=== PATIENT | female | born 1950 | race Caucasian/White ===

== ENCOUNTER 2020-04-29 14:43 | Outpatient (CLI) | payer MEDICARE, MEDICAID, SELFPAY ==
--- NOTE | ~2020-04-29 | DEXA_ITS ---
BMD(1) Young-Adult(2) Age-Matched(3) Region (g/cm2) T-score Z-score WHO Classification L1 1.162 0.2 0.7 Normal L2 1.265 0.5 0.9 Normal L3 1.312 0.8 1.2 Normal L4 1.271 0.4 0.9 Normal L1-L4 1.254 0.5 1.0 Normal L2-L4 1.284 0.5 1.0 Normal Trend: L2-L4 Change vs Change vs Measured Age BMD(1) Baseline Previous Date (years) (g/cm2) (%) (%) 04[age]29/2020 69.7 1[age]284 baseline - 1 - Statistically 68% of repeat scans fall within 1SD (+- 0.010 g/cm2 for AP Spine L2-L4) 2 - [place] (Combined NHANES (ages 20-30) / AT Internet (ages 20-40)) AP Spine Reference Population (v112) 3 - Matched for Age, Weight (females 25-100 kg), Ethnic 11 - World Health Organization - Definition of Osteoporosis and Osteopenia for Women: Normal = T-score at or above -1.0 SD; Osteopenia = T-score between -1.0 and -2.5 SD; Osteoporosis = T-score at or below -2.5 SD; (WHO definitions only apply when a young healthy Women reference database is used to determine T-scores.) Printed: 04/29/2020 3:52:08 PM (13.60)76:3.00:22.22:27.0 0.00:12.24 0.60x1.05 33.8:%Fat=39.6% 0.00:0.00 0.00:0.00 Filename: [id number] Scan Mode: Thick;OneScan 83.0 uGy [employer] [id number] BMD(1) Young-Adult(2,7) Age-Matched(3) Region (g/cm2) T-score Z-score WHO Classification Neck Left 0.752 -2.1 -1.2 Osteopenia Right 0.903 -1.0 -0.1 Normal Mean 0.827 -1.5 -0.6 Osteopenia Difference 0.152 1.1 1.1 - Total Left 1.000 -0.1 0.5 Normal Right 0.980 -0.2 0.3 Normal Mean 0.990 -0.1 0.4 Normal Difference 0.020 0.2 0.2 - Hip [place] Length Comparison (mm) (Right = 94.0 mm) (Mean = 104.2 mm) (Left = 95.7 mm) Trend: Total Mean Change vs Change vs Measured Age BMD(1) Baseline Previous Date (years) (g/cm2) (%) (%) 04/29/2020 68.7 0.990 baseline - 1 - Statistically 68% of repeat scans fall within 1SD (+- 0.010 g/cm2 for DualFemur Total) 2 - [place] (Combined NHANES (ages 20-30) / AT Internet (ages 20-40)) Femur Reference Population (v112) 3 - Matched for Age, Weight (females 25-100 kg), Ethnic 7 - DualFemur Total T-score difference is 0.2. Asymmetry is None. 11 - World Health Organization - Definition of Osteoporosis and Osteopenia for Women: Normal = T-score at or above -1.0 SD; Osteopenia = T-score between -1.0 and -2.5 SD; Osteoporosis = T-score at or below -2.5 SD; (WHO definitions only apply when a young healthy Women reference database is used to determine T-scores.) Printed: 04/29/2020 3:52:08 PM (13.60); Filename: [id number]; Right Femur; 29.7:%Fat=37.0%; Neck Angle (deg)= 61; Measured thickness not within mode range; Scan Mode: Standard 37.0 uGy; Left Femur; 31.0:%Fat=42.1%; Neck Angle (deg)= 67; Measured thickness not within mode range; Scan Mode: Standard 37.0 uGy [employer] [id number] Dear Enma Allan, Your patient Maya Johnston completed a BMD test on 04/29/2020 using the [employer] DXA System (analysis version: 13.60) manufactured by [employer]. The following summarizes the results of our evaluation. PATIENT BIOGRAPHICAL: Name: Maya Johnston Date: 1950 Height: 62.0 in.
== END 2020-04-29 14:44 | disposition home or self-care (01) ==
LOC: CHSIMG 14:49
PROVIDERS: PCP Family Medicine; Visit Provider Physician Assistant
DX: Z78.0 Asymptomatic menopausal state (principal)
CPT/HCPCS: 77080

== ENCOUNTER 2020-04-29 15:17 | Emergency (ER) | payer MEDICARE, MEDICAID, SELFPAY ==
[2020-04-29 15:20] VITALS: BP 132/80; PULSE 80; RESP 14; TEMP 37.1; O2SAT 96
--- NOTE | 2020-04-29 15:38 | ED.WOUNDLAC ---
HPI - Wound/Laceration General Chief Complaint: Wound/Laceration Stated Complaint: 69YO female w/ 6 day h/o right leg red bump. Patient admits she has squeezed lesion w/ clear drainage and scant blood. Here for abx. Denies fever, chills. Related Data Home Medications Medication Instructions Recorded Confirmed [id number] 1 ea INHALATION DAILY 04/29/20 04/29/20 [Trelegy Ellipta] lovastatin 20 mg PO DAILY 04/29/20 04/29/20 montelukast 10 mg PO DAILY 04/29/20 04/29/20 pantoprazole 40 mg PO DAILY 04/29/20 04/29/20 Allergies Allergy/AdvReac Type Severity Reaction Status Date / Time hydromorphone [From Dilaudid] Allergy Unknown Verified 04/29/20 15:32 levofloxacin [From Levaquin] Allergy Unknown Verified 04/29/20 15:32 morphine Allergy Unknown Verified 04/29/20 15:32 topiramate [From Topamax] Allergy Unknown Verified 04/29/20 15:32 Review of Systems Cardiovascular: Cardiovascular: Reports no additional cardiovascular complaints Respiratory: Respiratory: Reports no additional respiratory complaints Integumentary/Breasts: Skin/Breast: Reports system reviewed and no additional complaints, except as docu, Reports as per HPI and Reports erythema Neurologic: Reports system reviewed and no additional complaints, except as documented and Reports as per HPI Exam Skin: Wounds: wounds noted (Right leg erythema w/ induration. Nonfluctuant) Neuro: General: patient oriented x3, moves all extremities, no focal motor deficits and CN's II-XI intact bilaterally Extrem: General: normal to inspection Course Vital Signs Vital signs: Vital Signs Temperature 98.7 F 04/29/20 15:20 Pulse Rate 80 04/29/20 15:20 Respiratory Rate 14 04/29/20 15:20 Blood Pressure 132/80 04/29/20 15:20 Pulse Oximetry 96 04/29/20 15:20 Temperature 98.7 F 04/29/20 15:20 Pulse Rate 80 04/29/20 15:20 Respiratory Rate 14 04/29/20 15:20 Blood Pressure 132/80 04/29/20 15:20 Pulse Oximetry 96 04/29/20 15:20 MDM - Wound/Laceration Differential Diagnosis Differential diagnosis: Likely abrasion and other (cellulitis) Critical Care Time Critical Care Time Critical Care Time: No Discharge Plan Discharge Clinical Impression: Cellulitis of left leg Patient Disposition: Home, Self-Care Condition: Stable Instructions: Antibiotic Form, Cellulitis (ED) Additional Instructions: F/U with PMD in 5-7 days for wound reexamination Prescriptions: New doxycycline hyclate 100 mg capsule 100 mg PO Q12H Qty: 20 RF: 0 No Action pantoprazole 40 mg tablet,delayed release (DR/EC) 40 mg PO DAILY RF: 0 Trelegy Ellipta 100-62.5-25 mcg blister with device 1 ea INHALATION DAILY RF: 0 montelukast 10 mg tablet 10 mg PO DAILY RF: 0 lovastatin 20 mg tablet 20 mg PO DAILY RF: 0 Interventions: Discharge Disposition Last Done: 04/29/20 15:39 Follow-up/Referrals: Joan Mckee MD [Primary Care Provider] - Time of Disposition: 15:41
[2020-04-29 15:39] VITALS: RESP 14; O2SAT 99
== END 2020-04-29 15:45 | disposition home or self-care (01) ==
PROVIDERS: Emergency Provider Family Medicine; PCP Family Medicine
DX: L03.116 Cellulitis of left lower limb (principal)
CPT/HCPCS: 77080; 99283

== ENCOUNTER 2020-12-31 13:46 | Outpatient (CLI) | payer MEDICARE, SELFPAY ==
[2020-12-31 14:15] LABS: Hemoglobin A1C 6.4 % (<5.7)
[2020-12-31 14:45] LABS: Anion Gap 14 mmol/L (8-16); Blood Urea Nitrogen 17 mg/dL (7-18); Calcium 9.3 mg/dL (8.5-10.1); Carbon Dioxide 23 mmol/L (21-32); Chloride 102 mmol/L (98-108); Cholesterol 268 mg/dL (0-200); Estimated Glomerular Filt Rate > 60; Free T4 Free Thyroxine 0.99 ng/dL (0.76-1.46); Glucose 105 mg/dL (70-99); HDL Direct 47 mg/dL (40-60); LDL Cholesterol Calculated 157 mg/dL (<130); Osmolality Calculated 289 mOsm/kg (285-295); Potassium 4.3 mmol/L (3.5-5.1); Sodium 139 mmol/L (136-145); Thyroid Stimulating Hormone 3.05 uIU/mL (0.36-3.74); Triglycerides 318 mg/dL (0-150)
== END 2020-12-31 13:47 | disposition home or self-care (01) ==
LOC: CHSLAB 13:49
PROVIDERS: PCP Family Medicine; Visit Provider Physician Assistant
DX: E03.9 Hypothyroidism, unspecified (principal); E78.5 Hyperlipidemia, unspecified; E11.9 Type 2 diabetes mellitus without complications
CPT/HCPCS: 36415; 80048; 80061; 83036; 84439; 84443

== ENCOUNTER 2021-06-10 11:00 | Outpatient (RCR) | payer MEDICARE, MEDICAID, SELFPAY | END 2021-06-10 13:19 | disposition home or self-care (01) | PROVIDERS: PCP Family Medicine; Visit Provider Family Medicine | DX: J44.9 Chronic obstructive pulmonary disease, unspecified (principal) | CPT/HCPCS: 97150; G0424 ==

== ENCOUNTER 2021-07-08 12:51 | Outpatient (CLI) | payer MEDICARE, MEDICAID, SELFPAY ==
[2021-07-08 13:25] LABS: Hemoglobin A1C 6.6 % (<5.7)
[2021-07-08 13:42] LABS: Cholesterol 223 mg/dL (0-200); Free T4 Free Thyroxine 0.94 ng/dL (0.76-1.46); HDL Direct 48 mg/dL (40-60); LDL Cholesterol Calculated 117 mg/dL (<130); Thyroid Stimulating Hormone 3.42 uIU/mL (0.36-3.74); Triglycerides 291 mg/dL (0-150)
== END 2021-07-08 12:52 | disposition home or self-care (01) ==
LOC: CHSLAB 12:55
PROVIDERS: PCP Family Medicine; Visit Provider Physician Assistant
DX: E11.9 Type 2 diabetes mellitus without complications (principal); E78.5 Hyperlipidemia, unspecified; E03.9 Hypothyroidism, unspecified
CPT/HCPCS: 36415; 80061; 83036; 84439; 84443

== ENCOUNTER 2021-07-16 14:04 | Outpatient (CLI) | payer MEDICARE, SELFPAY | END 2021-07-16 14:05 | disposition home or self-care (01) | LOC: CHSLAB 14:05 | PROVIDERS: PCP Family Medicine; Visit Provider Nurse Practitioner Family | DX: R19.7 Diarrhea, unspecified (principal) | CPT/HCPCS: 87045; 87177; 87209; 87324; 87427 ==

== ENCOUNTER 2021-11-04 11:29 | Outpatient (CLI) | payer MEDICARE, SELFPAY ==
[2021-11-04 12:13] LABS: Hemoglobin A1C 6.7 % (<5.7)
[2021-11-04 13:41] LABS: Anion Gap 13 mmol/L (8-16); Blood Urea Nitrogen 19 mg/dL (7-18); Calcium 8.7 mg/dL (8.5-10.1); Carbon Dioxide 26 mmol/L (21-32); Chloride 103 mmol/L (98-108); Estimated Glomerular Filt Rate 56; Free T4 Free Thyroxine 1.11 ng/dL (0.76-1.46); Glucose 113 mg/dL (70-99); Osmolality Calculated 297 mOsm/kg (285-295); Potassium 4.5 mmol/L (3.5-5.1); Sodium 142 mmol/L (136-145)
== END 2021-11-04 11:30 | disposition home or self-care (01) ==
LOC: CHSLAB 11:32
PROVIDERS: PCP Family Medicine; Visit Provider Physician Assistant
DX: E03.9 Hypothyroidism, unspecified (principal); E11.9 Type 2 diabetes mellitus without complications; I10 Essential (primary) hypertension
CPT/HCPCS: 36415; 80048; 83036; 84439; 84443

== ENCOUNTER 2022-01-12 12:43 | Outpatient (CLI) | payer MEDICARE, MEDICAID, SELFPAY ==
--- NOTE | ~2022-01-12 | XR_ITS ---
EXAMINATION: XR abdomen/kub 1V INDICATION: Left lower quadrant abdominal pain TECHNIQUE: Supine views of the abdomen were obtained on 2 radiographs. COMPARISON: None FINDINGS: The bowel gas pattern is normal. No dilated loops of bowel are evident. Surgical clips in t he right upper quadrant are likely from prior cholecystectomy. There is moderate to severe lumbar spo ndylosis. 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 IMPRESSION: 1. No radiographic correlate for the patient's symptoms. Reviewed, dictated and finalized at location B.
== END 2022-01-12 12:44 | disposition home or self-care (01) ==
LOC: CHSIMG 12:48
PROVIDERS: PCP Family Medicine
DX: R10.9 Unspecified abdominal pain (principal)
CPT/HCPCS: 74018

== ENCOUNTER 2022-04-05 10:38 | Outpatient (CLI) | payer MEDICARE, SELFPAY ==
[2022-04-05 13:12] LABS: SARS-CoV-2 RNA PCR Negative (Negative)
== END 2022-04-05 10:39 | disposition home or self-care (01) ==
LOC: CHSLAB 10:41
PROVIDERS: PCP Family Medicine; Visit Provider Ophthalmology
DX: Z03.818 Encounter for observation for suspected exposure to other biological agents ruled out (principal); Z20.822 Contact with and (suspected) exposure to COVID-19
CPT/HCPCS: C9803; U0003; U0005

== ENCOUNTER 2022-07-13 16:46 | Outpatient (CLI) | payer MEDICARE, SELFPAY ==
[2022-07-13 17:15] LABS: Hemoglobin A1C 6.4 % (<5.7)
== END 2022-07-13 16:47 | disposition home or self-care (01) ==
LOC: CHSLAB 16:50
PROVIDERS: PCP Physician Assistant; Visit Provider Physician Assistant
DX: E11.9 Type 2 diabetes mellitus without complications (principal)
CPT/HCPCS: 36415; 83036

== ENCOUNTER 2023-02-23 11:15 | Outpatient (CLI) | payer MEDICARE, SELFPAY ==
[2023-02-23 11:31] LABS: Basophils Absolute Auto 0.06 K/mm3 (0.00-0.10); Basophils Percent Auto 0.6 % (0.0-1.0); Eosinophils Absolute Auto 0.45 K/mm3 (0.02-0.50); Eosinophils Percent Auto 4.7 % (1.0-6.0); Hematocrit 40.6 % (35.0-42.0); Hemoglobin 13.1 g/dL (11.7-13.8); Immature Granulocyte Absolute 0.08 K/mm3 (0.00-0.00); Immature Granulocyte Percent A 0.8 % (0.0-0.0); Lymphocytes Absolute Auto 3.49 K/mm3 (1.10-4.50); Lymphocytes Percent Auto 36.3 % (18.0-42.0); Mean Corpuscular HGB Conc 32.3 g/dL (32.0-36.0); Mean Corpuscular Hemoglobin 28.4 pg (27.0-31.0); Mean Corpuscular Volume 88.1 fL (78.0-102.0); Mean Platelet Volume 11.1 fl (9.2-11.8); Monocytes Absolute Auto 0.68 K/mm3 (0.10-0.90); Monocytes Percent Auto 7.1 % (2.0-11.0); Neutrophils Absolute Auto 4.9 K/mm3 (1.7-7.2); Neutrophils Percent Auto 50.5 % (50.0-70.0); Platelet Count Result 296 K/mm3 (150-420); Red Blood Count 4.61 M/mm3 (4.20-5.40); Red Cell Distribution Width 13.3 % (11.6-14.4); White Blood Count 9.6 K/mm3 (4.8-10.8)
[2023-02-23 12:21] LABS: Alanine Aminotransferase 26 U/L (14-59); Albumin Level 3.7 g/dL (3.4-5.0); Alkaline Phosphatase 110 U/L (46-116); Anion Gap 12 mmol/L (8-16); Aspartate Amino Transferase 16 U/L (15-37); Bilirubin,Total 0.5 mg/dL (0.00-1.00); Blood Urea Nitrogen 20 mg/dL (7-18); Calcium 8.8 mg/dL (8.5-10.1); Carbon Dioxide 26 mmol/L (21-32); Chloride 104 mmol/L (98-108); Cholesterol 263 mg/dL (0-200); Estimated Glomerular Filt Rate > 60; Folic Acid 17.8 ng/mL (8.6->20); Glucose 131 mg/dL (70-99); HDL Direct 53 mg/dL (40-60); LDL Cholesterol Calculated 169 mg/dL (<130); Osmolality Calculated 298 mOsm/kg (285-295); Potassium 4.5 mmol/L (3.5-5.1); Sodium 142 mmol/L (136-145); Triglycerides 205 mg/dL (0-150)
== END 2023-02-23 11:16 | disposition home or self-care (01) ==
LOC: CHSLAB 11:17
PROVIDERS: PCP Family Medicine; Visit Provider Physician Assistant
DX: E11.9 Type 2 diabetes mellitus without complications (principal); E78.5 Hyperlipidemia, unspecified; R53.83 Other fatigue
CPT/HCPCS: 36415; 80053; 80061; 82746; 85025

== ENCOUNTER 2023-06-06 10:49 | Outpatient (CLI) | payer MEDICARE, SELFPAY ==
[2023-06-06 11:52] LABS: Hemoglobin A1C 6.2 % (<5.7)
[2023-06-06 13:20] LABS: Alanine Aminotransferase 21 U/L (14-59); Albumin Level 3.6 g/dL (3.4-5.0); Alkaline Phosphatase 115 U/L (46-116); Anion Gap 11 mmol/L (8-16); Aspartate Amino Transferase 15 U/L (15-37); Bilirubin,Total 0.4 mg/dL (0.00-1.00); Blood Urea Nitrogen 18 mg/dL (7-18); Calcium 8.5 mg/dL (8.5-10.1); Carbon Dioxide 27 mmol/L (21-32); Chloride 105 mmol/L (98-108); Cholesterol 192 mg/dL (0-200); Estimated Glomerular Filt Rate > 60; Glucose 156 mg/dL (70-99); HDL Direct 50 mg/dL (40-60); LDL Cholesterol Calculated 106 mg/dL (<130); Osmolality Calculated 300 mOsm/kg (285-295); Potassium 4.4 mmol/L (3.5-5.1); Sodium 143 mmol/L (136-145); Total Protein 6.7 g/dL (6.4-8.2); Triglycerides 178 mg/dL (0-150)
== END 2023-06-06 10:50 | disposition home or self-care (01) ==
LOC: CHSLAB 10:52
PROVIDERS: PCP Family Medicine; Visit Provider Physician Assistant
DX: E11.9 Type 2 diabetes mellitus without complications (principal); E78.5 Hyperlipidemia, unspecified
CPT/HCPCS: 36415; 80053; 80061; 83036